=== PATIENT | female | born 1965 | race Two or more races ===

== ENCOUNTER 2018-02-28 09:38 | Outpatient (CLI) | payer MEDICAID ==
[~2018-02-28] VITALS: Ht 144.8 cm; Wt 104.8 kg
[2018-02-28 10:29] VITALS: BP 138/68
[2018-02-28] MEDS ORDERED: HUMALOG100 UNIT/4 SUBQ (14:41)
[2018-02-28] MEDS ORDERED: FERROUS SULFAT325 MG ORAL (14:41)
[2018-02-28] MEDS ORDERED: LANTUS SOL100 UNIT/1 SUBQ (14:41)
[2018-02-28] MEDS ORDERED: ASPIRIN EC81 MG ORAL (14:41)
[2018-02-28] MEDS ORDERED: SIMVASTATIN40 MG ORAL (14:41)
[2018-02-28] MEDS ORDERED: ENALAPRIL MALEA10 MG ORAL (14:41)
[2018-02-28] MEDS ORDERED: OMEPRAZOLE40 M1 ORAL (14:41)
--- NOTE | 2018-03-01 09:36 | GI Initial Consult Note ---
History of Present Illness General Date patient seen: Feb 28, 2018 Time patient seen: 09:31 Referring physician: Dr. Vang Reason for Consultation: GASTRIC NODULE Present Illness HPI 52 year old female patient referred by Dr. Vang for evaluation of a gastric nodule that was found on the patients EGD/colonoscopy in December 2017. She presents today with c/o left knee pain. Denies any GI symptoms; denies abdominal pain, N/V/D or diarrhea. The patient has an ultrasound scheduled on . Denies any unintentional weight loss or changes in dietary habits. No signs of abuse or neglect. Patient is not fall risk. Home Meds Reported Medications Ferrous Sulfate* (FERROUS SULFATE*) 325 Mg Tablet, 325 MG ORAL DAILY, #30 TAB 0 Refills 02/28/18 Insulin Glargine (LANTUS) 100 Unit/1 Ml Insuln.pen, 57 SUBQ BEDTIME, #1 EA 0 Refills 02/28/18 Insulin Lispro (HUMALOG) 100 Unit/1 Ml Cartridge, 0 SUBQ TID, #1 UNITS 0 Refills 02/28/18 Simvastatin (ZOCOR) 40 Mg Tablet, 40 MG ORAL BEDTIME, TAB 02/28/18 Aspirin Ec* (ASPIRIN EC*) 81 Mg Tablet.dr, 81 MG ORAL DAILY, TAB 02/28/18 Enalapril Maleate* (ENALAPRIL MALEATE*) 10 Mg Tablet, 10 MG ORAL DAILY, TAB 02/28/18 Omeprazole (OMEPRAZOLE) 40 Mg Capsule.dr, 40 MG ORAL DAILY, CAP 02/28/18 Med list reviewed/reconciled: Yes Allergies: Coded Allergies: No Known Allergies (Unverified , 02/28/18) Patient History History Provided By: Patient, Medical Record PMH Narrative Anemia DM HTN HLD H. Pylori s/p Tx Hx of blood transfusion 2013 GERD Past Surgical History: Hysterectomy x 3 Appendectomy Inguinal hernia repair Pertinent Family History: none Social History: Reports: other - coffee; Denies: smoking, alcohol use, drug use Review of Systems All Other Systems: negative except mentioned in HPI Physical Exam Vital Signs Date Time Temp Pulse Resp B/P (MAP) Pulse Ox O2 Delivery O2 Flow Rate FiO2 02/28/18 10:29 97.6 91 20 138/68 96 97.6 Sp02 EP Interpretation: reviewed, normal General Appearance: well appearing, no apparent distress, alert Head: normocephalic EENT: PERRL/EOMI, normal ENT inspection Neck: supple Respiratory: normal breath sounds, no respiratory distress Cardiovascular: normal rate Gastrointestinal: normal inspection, non tender, soft, normal bowel sounds, non -distended Rectal: deferred Genitourinary: no CVA tenderness Musculoskeletal: normal inspection, back normal Neurologic: normal inspection, alert, oriented x3, responsive Psychiatric: normal inspection, judgement/insight normal, memory normal Skin: normal inspection, normal color, no rash, warm/dry, palpation normal, well hydrated Lymphatic: normal inspection, no adenopathy GI: Plan Problems: (1) Encounter for diagnostic endoscopy (2) Anemia (3) Diabetes mellitus (4) HTN (hypertension) (5) HLD (hyperlipidemia) (6) GERD (gastroesophageal reflux disease) (7) History of Helicobacter pylori infection Plan EUS tentatively scheduled 03/10/18 pending prior authorization, will contact patient. - NPO @ [facility] day prior procedure acknowledged by patient. Seen with Dr. Anton. Thank you for this patient referral. The patient was seen and examined at bedside and all new and available data was reviewed in the patients chart. I agree with the above findings, impression and plan. (Patient seen earlier today. Signature stamp does not reflect patient encounter time.). - MD Gabbi VegaOro Valley HospitalOri CENTRAL CONTROL ROOM OPERATOR Mar 01, 2018 09:36
== END 2018-02-28 10:08 | disposition home or self-care (01) ==
LOC: PAN 09:38
DX: M25.562 Pain in left knee (principal); D64.9 Anemia, unspecified; E11.9 Type 2 diabetes mellitus without complications; I10 Essential (primary) hypertension; E78.5 Hyperlipidemia, unspecified; K21.9 Gastro-esophageal reflux disease without esophagitis; Z79.82 Long term (current) use of aspirin; Z90.89 Acquired absence of other organs; Z90.710 Acquired absence of both cervix and uterus
CPT/HCPCS: 99201

== ENCOUNTER 2018-03-10 06:21 | Day surgery (SDC) | payer MEDICAID ==
[2018-03-10] VITALS (8 sets, daily range): BP systolic 114–131; BP diastolic 52–74
[~2018-03-10] VITALS: Ht 144.8 cm; Wt 104.3 kg
[~2018-03-10 06:21] MED LIST: ASPIRIN EC81 MG ORAL; ENALAPRIL MALEA10 MG ORAL; FERROUS SULFAT325 MG ORAL; HUMALOG100 UNIT/4 SUBQ; LANTUS SOL100 UNIT/1 SUBQ; OMEPRAZOLE40 M1 ORAL; SIMVASTATIN40 MG ORAL
[2018-03-10 07:42] LABS: HEMATOCRIT 34.7 % (37.0-47.0); HEMOGLOBIN 11.9 G/DL (12.0-16.0); MEAN CORPUSCULAR VOLUME 80 FL (80-99); PLATELET COUNT 52 K/UL (150-450); RED BLOOD COUNT 4.35 M/UL (4.20-5.40); RED CELL DISTRIBUTION WIDTH 13.4 % (11.6-14.8); WHITE BLOOD COUNT 2.2 K/UL (4.8-10.8)
[2018-03-10] MEDS ORDERED: VITAMIN D22000 UNIT PO (08:05)
[2018-03-10 08:07] LABS: ALANINE AMINOTRANSFERASE 39 U/L (12-78); ALBUMIN 2.7 G/DL (3.4-5.0); ALBUMIN/GLOBULIN RATIO 0.7 (1.0-2.7); ALKALINE PHOSPHATASE 159 U/L (46-116); ANION GAP 8 mmol/L (5-15); ASPARTATE AMINO TRANSFERASE 50 U/L (15-37); BLOOD UREA NITROGEN 11 mg/dL (7-18); CALCIUM 8.4 MG/DL (8.5-10.1); CARBON DIOXIDE 26 MMOL/L (21-32); CHLORIDE 108 MMOL/L (98-107); CREATININE 0.5 MG/DL (0.55-1.30); POTASSIUM 3.9 MMOL/L (3.5-5.1); SODIUM 141 MMOL/L (136-145)
[2018-03-10 08:09] LABS: INR 1.1 (0.9-1.1)
[2018-03-10] MEDS ORDERED: LR 1000ml 1,000 ML IVLG SCH (08:17)
--- NOTE | 2018-03-10 08:17 | Anethesia Preoperative Eval ---
Anesthesia Pre-op PMH/ROS General Date of Evaluation: Mar 10, 2018 Anesthesiologist: Sumeet ASA Score: ASA 3 Mallampati Score Class I : Soft palate, uvula, fauces, pillars visible Class II: Soft palate, uvula, fauces visible Class III: Soft palate, base of uvula visible Class IV: Only hard plate visible Mallampati Classification: Class III Surgeon: Desean Diagnosis: Gastric lesion Surgical Procedure: EGD and EUS Anesthesia History: none Family History: no anesthesia problems Allergies: Uncoded Allergies: PLATELETS (Allergy, Severe, 03/09/18) SWELLING OF TONGUE AND EYES Medications: see eMAR Past Medical History Cardiovascular: Reports: HTN, other - HLD; Denies: CAD, MA, valve dz, arrhythmia Pulmonary: Denies: asthma, COPD, JUANA, other Gastrointestinal/Genitourinary: Reports: GERD, other - chirrosis; Denies: CRI, ESRD Neurologic/Psychiatric: Denies: dementia, CVA, depression/anxiety, TIA, other Endocrine: Reports: DM; Denies: hypothyroidism, steroids, other HEENT: Denies: cataract (L), cataract (R), glaucoma, [place] (L), [place] (R), other Hematology/Immune: Reports: anemia - chronic; Denies: DVT, bleeding disorder, other Musculoskeletal/Integumentary: Reports: OA; Denies: RA, DJD, DDD, edema, other Other: obesity PSxH Narrative: MIKE, IRH, appy, c/s x3 Anesthesia Pre-op Phys. Exam Physician Exam Last Vital Signs Date Time Temp Pulse Resp B/P (MAP) Pulse Ox O2 Delivery O2 Flow Rate FiO2 03/10/18 07:20 97.5 83 20 114/52 (72) 97 97.5 03/10/18 06:48 Room Air Constitutional: NAD Cardiovascular: RRR Respiratory: other - distant breath sounds Airway Exam Mallampati Score: Class III MO: limited ROM: limited Anesthesia Pre-op A/P Labs Hematology Test 03/10/18 07:15 White Blood Count 2.2 K/UL (4.8-10.8) L Red Blood Count 4.35 M/UL (4.20-5.40) Hemoglobin 11.9 G/DL (12.0-16.0) L Hematocrit 34.7 % (37.0-47.0) L Mean Corpuscular Volume 80 FL (80-99) Mean Corpuscular Hemoglobin 27.4 PG (27.0-31.0) Mean Corpuscular Hemoglobin Concent 34.4 G/DL (32.0-36.0) Red Cell Distribution Width 13.4 % (11.6-14.8) Platelet Count 52 K/UL (150-450) L Mean Platelet Volume 7.5 FL (6.5-10.1) Neutrophils (%) (Auto) % (45.0-75.0) Lymphocytes (%) (Auto) % (20.0-45.0) Monocytes (%) (Auto) % (1.0-10.0) Eosinophils (%) (Auto) % (0.0-3.0) Basophils (%) (Auto) % (0.0-2.0) Neutrophils % (Manual) Pending Lymphocytes % (Manual) Pending Platelet Estimate Pending Platelet Morphology Pending Coagulation Test 03/10/18 07:15 Prothrombin Time 11.5 SEC (9.30-11.50) Prothromb Time International Ratio 1.1 (0.9-1.1) Activated Partial Thromboplast Time 27 SEC (23-33) Chemistry Test 03/10/18 07:15 Sodium Level 141 MMOL/L (136-145) Potassium Level 3.9 MMOL/L (3.5-5.1) Chloride Level 108 MMOL/L (98-107) H Carbon Dioxide Level 26 MMOL/L (21-32) Anion Gap 8 mmol/L (5-15) Blood Urea Nitrogen 11 mg/dL (7-18) Creatinine 0.5 MG/DL (0.55-1.30) L Estimat Glomerular Filtration Rate > 60 mL/min (>60) Glucose Level 214 MG/DL (74-106) H Calcium Level 8.4 MG/DL (8.5-10.1) L Total Bilirubin 1.0 MG/DL (0.2-1.0) Aspartate Amino Transf (AST/SGOT) 50 U/L (15-37) H Alanine Aminotransferase (ALT/SGPT) 39 U/L (12-78) Alkaline Phosphatase 159 U/L (46-116) H Total Protein 6.6 G/DL (6.4-8.2) Albumin 2.7 G/DL (3.4-5.0) L Globulin 3.9 g/dL Albumin/Globulin Ratio 0.7 (1.0-2.7) L Studies Pre-op Studies: EKG - sr Risk Assessment & Plan Assessment: ASA III Plan: MAC Status Change Before Surgery: No Pre-Antibiotics Drug: N/A Lauren Mccormick MD Mar 10, 2018 08:17
[2018-03-10] MEDS ORDERED: DiphenhydrAMINE 50mg/ml Inj IVP PRN (08:30)
[2018-03-10] MEDS ORDERED: Labetalol 5mg/ml 20ml vial IV PRN (08:30)
[2018-03-10] MEDS ORDERED: Lidocaine 1% MPF 10mg/ml 5ml ONE (09:00)
[2018-03-10] MEDS ORDERED: LR 1000ml ONE (09:00)
[2018-03-10] MEDS ORDERED: Propofol 200mg/20ml IV ONE (09:00)
--- NOTE | 2018-03-10 09:05 | Pre-Procedure Note/Attestation ---
Pre-Procedure Note/Attestation Complete Prior to Procedure Planned Procedure: not applicable Procedure Narrative: egd/EUS Indications for Procedure Pre-Operative Diagnosis: GASTRIC SUBMUCOSAL LESION Attestation I attest that I discussed the nature of the procedure; its benefits; risks and complications; and alternatives (and the risks and benefits of such alternatives ), prior to the procedure, with the patient (or the patient's legal community service representative). I attest that, if there was a reasonable possibility of needing a blood transfusion, the patient (or the patient's legal community service representative) was given the [facility] standardized written summary, pursuant to the Jayy Shirley Blood Safety Act ([place] Health and Safety Code # 1645, as amended). I attest that I re-evaluated the patient just prior to the surgery and that there has been no change in the patient's H&P, except as documented below: Damion Anton MD Mar 10, 2018 09:05
--- NOTE | 2018-03-10 09:05 | Short Stay Surgery H&P ---
History of Present Illness History of Present Illness Chief Complaint SEE RECENT OFFICE NOTE HPI Za Bernard is a 52 year old female who was admitted on for Anemia,Gerd Patient History Allergies: Uncoded Allergies: PLATELETS (Allergy, Severe, 03/09/18) SWELLING OF TONGUE AND EYES Medication History Scheduled Aspirin Ec* (Aspirin Ec*), 81 MG ORAL DAILY, (Reported) Enalapril Maleate* (Enalapril Maleate*), 10 MG ORAL DAILY, (Reported) Ergocalciferol (Vitamin D2) (Vitamin D2), 50,000 UNIT PO ONCE A WEEK, (Reported) Insulin Glargine (Lantus), 57 SUBQ BEDTIME, (Reported) Insulin Lispro (Humalog), 0 SUBQ TID, (Reported) Omeprazole (Omeprazole), 40 MG ORAL DAILY, (Reported) Simvastatin (Zocor), 40 MG ORAL BEDTIME, (Reported) Discontinued Medications Ferrous Sulfate* (Ferrous Sulfate*), 325 MG ORAL DAILY, (Reported) Discontinued Reason: Pt stopped taking med Physical Exam Vital Signs Last Vital Signs Date Time Temp Pulse Resp B/P (MAP) Pulse Ox O2 Delivery O2 Flow Rate FiO2 03/10/18 07:20 97.5 83 20 114/52 (72) 97 97.5 03/10/18 06:48 Room Air Labs Laboratory Tests Test 03/10/18 07:15 White Blood Count 2.2 K/UL (4.8-10.8) L Red Blood Count 4.35 M/UL (4.20-5.40) Hemoglobin 11.9 G/DL (12.0-16.0) L Hematocrit 34.7 % (37.0-47.0) L Mean Corpuscular Volume 80 FL (80-99) Mean Corpuscular Hemoglobin 27.4 PG (27.0-31.0) Mean Corpuscular Hemoglobin Concent 34.4 G/DL (32.0-36.0) Red Cell Distribution Width 13.4 % (11.6-14.8) Platelet Count 52 K/UL (150-450) L Mean Platelet Volume 7.5 FL (6.5-10.1) Neutrophils (%) (Auto) % (45.0-75.0) Lymphocytes (%) (Auto) % (20.0-45.0) Monocytes (%) (Auto) % (1.0-10.0) Eosinophils (%) (Auto) % (0.0-3.0) Basophils (%) (Auto) % (0.0-2.0) Differential Total Cells Counted 100 Neutrophils % (Manual) 52 % (45-75) Lymphocytes % (Manual) 44 % (20-45) Monocytes % (Manual) 3 % (1-10) Eosinophils % (Manual) 1 % (0-3) Basophils % (Manual) 0 % (0-2) Band Neutrophils 0 % (0-8) Platelet Estimate Decreased L Platelet Morphology Normal Microcytosis 1+ Prothrombin Time 11.5 SEC (9.30-11.50) Prothromb Time International Ratio 1.1 (0.9-1.1) Activated Partial Thromboplast Time 27 SEC (23-33) Sodium Level 141 MMOL/L (136-145) Potassium Level 3.9 MMOL/L (3.5-5.1) Chloride Level 108 MMOL/L (98-107) H Carbon Dioxide Level 26 MMOL/L (21-32) Anion Gap 8 mmol/L (5-15) Blood Urea Nitrogen 11 mg/dL (7-18) Creatinine 0.5 MG/DL (0.55-1.30) L Estimat Glomerular Filtration Rate > 60 mL/min (>60) Glucose Level 214 MG/DL (74-106) H Calcium Level 8.4 MG/DL (8.5-10.1) L Total Bilirubin 1.0 MG/DL (0.2-1.0) Aspartate Amino Transf (AST/SGOT) 50 U/L (15-37) H Alanine Aminotransferase (ALT/SGPT) 39 U/L (12-78) Alkaline Phosphatase 159 U/L (46-116) H Total Protein 6.6 G/DL (6.4-8.2) Albumin 2.7 G/DL (3.4-5.0) L Globulin 3.9 g/dL Albumin/Globulin Ratio 0.7 (1.0-2.7) L Plan Attestation Are the patient's medical conditions optimized for surgery? Damion Anton MD Mar 10, 2018 09:05
--- NOTE | 2018-03-10 09:31 | Endoscopy Procedure Note ---
Endoscopy Procedure Note General Indication for Procedure: gastric lesion Procedures Performed: EGD, other - EUS Operative Findings/Diagnosis: gastrtis Specimen: yes Pt Tolerated Procedure Well: Yes Estimated Blood Loss: none Anesthesia Anesthesiologist: nicki Anesthesia: MAC Inserted Devices Implant(s) used?: No GI Core Measures 50 yrs or older w/o bx or poly: Not Applicable 10yrs. F/U not recommended: Not Applicable Damion Anton MD Mar 10, 2018 09:31
--- NOTE | 2018-03-10 09:36 | Immediate Post-Op Evaluation ---
Immediate Post-Op Evalulation Immediate Post-Op Evalulation Procedure: EGD and EUS Date of Evaluation: Mar 10, 2018 Time of Evaluation: 09:35 IV Fluids: 200 Blood Products: 0 Estimated Blood Loss: 0 Urinary Output: 0 Blood Pressure Systolic: 126 Blood Pressure Diastolic: 69 Pulse Rate: 88 Respiratory Rate: 17 O2 Sat by Pulse Oximetry: 99 Temperature (Fahrenheit): 98.6 Pain Score (1-10): 0 Nausea: No Vomiting: No Complications 0 Patient Status: awake, reacts, patent, none Hydration Status: adequate Drug: N/A Lauren Mccormick MD Mar 10, 2018 09:36
--- NOTE | 2018-03-10 09:37 | 48 Hour Post Anesthesia Eval ---
Post Anesthesia Evaluation Procedure: EGD and EUS Date of Evaluation: Mar 10, 2018 Airway: patent Nausea: No Vomiting: No Pain Intensity: 0 Hydration Status: adequate Cardiopulmonary Status: at baseline Mental Status/LOC: patient returned to baseline Post-Anesthesia Complications: 0 Follow-up care needed: ready to discharge Lauren Mccormick MD Mar 10, 2018 09:37
--- NOTE | 2018-03-10 20:00 | Procedure Note ---
DATE OF PROCEDURE: 03/10/2018 SURGEON: Damion Anton M.D. PROCEDURE: Upper endoscopy with biopsy and endoscopic ultrasound. ANESTHESIA: By Dr. Fay. INSTRUMENT: Olympus adult flexible upper endoscope and EUS scope. INDICATION: Gastric submucosal lesion. REASON FOR PROCEDURE: The procedure, risks, benefits, and possible consequences, including hemorrhage, aspiration, perforation and infection, and alternative treatments, were explained to the patient/legal guardian by Dr. Damion Anton and the patient/legal guardian understood and accepted these risks. DESCRIPTION OF PROCEDURE: After informed consent was obtained and the patient was adequately sedated, Olympus upper endoscope was advanced from mouth into the second portion of duodenum and retroflexion was performed of the stomach. We did not see any obvious gastric submucosal lesion in this endoscopic examination. There was nodularity of the mucosa especially in the peripyloric region. One of these nodules were biopsied. We examined the fundus. We did examine the angularis area even back and forth for almost 3 to 4 times looking for any big nodules that were seen on prior endoscopic examinations, but we did not see any. At this time, the upper endoscope was retrieved and EUS scope was introduced. Starting scanning at GE junction, her first celiac axis was then evaluated. There was no obvious celiac axis lymphadenopathy. Pancreatic parenchyma grossly looked within normal limits. There was no pancreatic duct dilatation. The scope was advanced into the antrum and into the duodenal bulb and subsequently into the second portion of duodenum. There was no common bile duct dilatation. No gallstone was seen. Gallbladder was normal without any sludge or stones in it. There was a nonspecific 1.2 cm portal lymph node. The significance of it is unknown. The patient has history of liver disease, possibly secondary to that. At this time, we pulled the EUS scope back into the stomach scan the gastric wall for looking for a submucosal lesion, which we did not find any. At this time, the scope was retrieved and procedure was terminated. SUMMARY FINDINGS: 1. Nodule of the gastritis status post biopsy. 2. Gallbladder without any obvious stone or sludge. 3. Normal pancreatic duct and common bile duct size. 4. A 1.2 cm portal lymph nodes of unknown significance. 5. No obvious large gastric submucosal lesion was seen. RECOMMENDATIONS: 1. Follow up biopsies and treat accordingly. 2. The patient to follow up with primary GI doctor that she is followed for the lymphadenopathy in the portal area. Thank you for referring this patient to us. Please call me back if you have any questions, #[phone]. Damion Anton M.D. DR: MELANIE JOB#: [id number] CC:
--- NOTE | 2018-03-15 16:08 | Cardiology Report ---
APPROVED REPORT EKG Measurement Heart [id number] Normal sinus rhythm Prolonged QT Abnormal ECG
== END 2018-03-10 10:45 | disposition home or self-care (01) ==
LOC: GAS 06:21
DX: K31.9 Disease of stomach and duodenum, unspecified (principal); K29.50 Unspecified chronic gastritis without bleeding; D64.9 Anemia, unspecified; K21.9 Gastro-esophageal reflux disease without esophagitis; E78.5 Hyperlipidemia, unspecified; I10 Essential (primary) hypertension; K74.60 Unspecified cirrhosis of liver; E11.9 Type 2 diabetes mellitus without complications; M19.90 Unspecified osteoarthritis, unspecified site; E66.9 Obesity, unspecified; Z90.710 Acquired absence of both cervix and uterus; Z79.82 Long term (current) use of aspirin; Z79.4 Long term (current) use of insulin
CPT/HCPCS: 36415; 43237; 43239; 80053; 82962; 85007; 85025; 85610; 85730; 93005; J2704; J7120; Z7512; 94003; 94150

== ENCOUNTER 2018-04-17 13:11 | Outpatient (CLI) | payer MEDICAID ==
[~2018-04-17 13:11] MED LIST changes: +VITAMIN D22000 UNIT PO
--- NOTE | 2018-04-17 13:43 | GI Progress Note ---
Assessment/Plan Problems: (1) GERD (gastroesophageal reflux disease) ICD Codes: K21.9 - Gastro-esophageal reflux disease without esophagitis SNOMED: 401543830 (2) Anemia ICD Codes: D64.9 - Anemia, unspecified SNOMED: 777932073 (3) Diabetes mellitus ICD Codes: E11.9 - Type 2 diabetes mellitus without complications SNOMED: 77345159 Status: stable Status Narrative Discussed with Dr. Anton. Assessment/Plan SUMMARY FINDINGS: 1. Nodule of the gastritis status post biopsy. >> suggestive of portal HTN 2. Gallbladder without any obvious stone or sludge. 3. Normal pancreatic duct and common bile duct size. 4. A 1.2 cm portal lymph nodes of unknown significance. 5. No obvious large gastric submucosal lesion was seen. RECOMMENDATIONS: RTC prn needs follow up with icing maker The patient was seen and examined at bedside and all new and available data was reviewed in the patients chart. I agree with the above findings, impression and plan. (Patient seen earlier today. Signature stamp does not reflect patient encounter time.). - Damion Anton MD Subjective Gastrointestinal/Abdominal: Reports: no symptoms Objective T 98.3 BP 133/69 P 94 95 RA General Appearance: WD/WN, no apparent distress, alert, obese Cardiovascular: normal rate Respiratory/Chest: normal breath sounds, no respiratory distress Abdominal Exam: normal bowel sounds, non tender, soft Extremities: normal range of motion, non-tender Navin Seo HAND THERMAL CUTTER Apr 17, 2018 13:43
[2018-04-17 15:31] VITALS: BP 133/69
== END 2018-04-17 13:41 | disposition home or self-care (01) ==
LOC: PAN 13:11
DX: K21.9 Gastro-esophageal reflux disease without esophagitis (principal); D64.9 Anemia, unspecified; E11.9 Type 2 diabetes mellitus without complications
CPT/HCPCS: 99202